=== PATIENT | female | born 1940 | race Caucasian/White ===

== ENCOUNTER 2021-12-13 14:28 | Inpatient (IN) | payer MEDICARE ==
[~2021-12-13] VITALS: Ht 170.2 cm; Wt 81.2 kg
[2021-12-13 16:43] LABS: HEMATOCRIT 40.9 % (31.2-41.9); MEAN CORPUSCULAR HEMOGLOBIN 28.4 uug (24.7-32.8); MEAN CORPUSCULAR VOLUME 87.7 fL (75.5-95.3); PLATELET COUNT (AUTO) 200 K/uL (179-408)
[2021-12-13 16:51] LABS: ALANINE AMINOTRANSFERASE 24 U/L (14-59); ALKALINE PHOSPHATASE 88 U/L (50-136); ASPARTATE AMINOTRANSFERASE 21 U/L (15-37); BILIRUBIN,DIRECT 0.1 mg/dL (0.0-0.2); BILIRUBIN,TOTAL 0.3 mg/dL (0.2-1.0); CARBON DIOXIDE 29 mmol/L (21-32); CHLORIDE 105 mmol/L (98-107); CREATININE 0.9 mg/dL (0.6-1.3); GLUCOSE 190 mg/dL (74-106); POTASSIUM 4.1 mmol/L (3.5-5.1); TOTAL PROTEIN, SERUM 7.4 g/dL (6.4-8.2); UREA NITROGEN, BLOOD 26 mg/dL (7-18)
[2021-12-13 16:53] LABS: ACETAMINOPHEN < 2.0 ug/mL (10-30)
[2021-12-13 17:08] LABS: ETHANOL < 3 MG/DL (0-0)
[2021-12-13 21:33] LABS: *AMPHETAMINE, URINE NEGATIVE (NEGATIVE); *CANNABINOID, URINE NEGATIVE (NEGATIVE); *COCCAINE, URINE NEGATIVE (NEGATIVE); *OPIATE, URINE NEGATIVE (NEGATIVE); *PHENCYCLIDINE SCREEN,URINE NEGATIVE (NEGATIVE)
[2021-12-14] MEDS ORDERED: LORAZEPAM 0.5 MG TABLET PO ONE (00:45)
[2021-12-14] MEDS ORDERED: OLANZAPINE 5 MG TABLET PO ONE (00:45)
[2021-12-14] MEDS ORDERED: OLANZAPINE 5 MG TABLET ONE (01:11)
[2021-12-14] MEDS ORDERED: LORAZEPAM 1 MG TABLET ONE (01:11)
[2021-12-14] MEDS ORDERED: MAGNESIUM HYDROXIDE 30 ML LIQUID UDC PO PRN (02:30)
[2021-12-14] MEDS ORDERED: MAG HYDROX/AL HYDROX/SIMETH 30 ML LIQUID UDC PO PRN (02:30)
[2021-12-14 03:23] VITALS: BP 166/81
[2021-12-14] MEDS: ACETAMINOPHEN 325 MG TABLET PO PRN (03:59)
[2021-12-14] MEDS: LORAZEPAM 1 MG TABLET PO PRN ×2 (04:00→17:06)
[2021-12-14 07:30] VITALS: BP 176/85
[2021-12-14] MEDS ORDERED: CHOL-35 PO (10:36)
[2021-12-14] MEDS ORDERED: IRBE300T18 PO (10:36)
[2021-12-14] MEDS ORDERED: AMLO-212 PO (10:36)
[2021-12-14] MEDS ORDERED: PANT20TA2 PO (10:36)
[2021-12-14] MEDS ORDERED: ACET-2154 PO (10:36)
[2021-12-14] MEDS ORDERED: QUET100T PO (10:36)
[2021-12-14 16:00] VITALS: BP 138/69
[2021-12-14 20:00] VITALS: BP 128/72
[2021-12-14] MEDS: TEMAZEPAM 7.5 MG CAPSULE PO PRN (21:52)
[2021-12-15 08:16] VITALS: BP 153/73
[2021-12-15] MEDS: LORAZEPAM 1 MG TABLET PO PRN ×2 (13:38→23:12)
[2021-12-15 16:21] VITALS: BP 119/71
[2021-12-15 19:58] VITALS: BP 142/74
[2021-12-15] MEDS: RIVASTIGMINE TARTRATE 1.5 MG CAPSULE PO SCH (22:05)
[2021-12-15] MEDS: TEMAZEPAM 7.5 MG CAPSULE PO PRN (22:05)
[2021-12-16] MEDS: ACETAMINOPHEN 325 MG TABLET PO PRN ×2 (03:49→17:42)
[2021-12-16] MEDS: LORAZEPAM 1 MG TABLET PO PRN ×4 (04:23→17:41)
[2021-12-16] MEDS: RIVASTIGMINE TARTRATE 1.5 MG CAPSULE PO SCH ×2 (08:50→21:05)
[2021-12-16] MEDS: risperiDONE 0.5 MG TABLET PO SCH ×2 (08:50→21:05)
[2021-12-16 09:45] VITALS: BP 145/57
[2021-12-16] MEDS: CHOLECALCIFEROL 1,000 UNIT TABLET PO SCH (14:15)
[2021-12-16] MEDS: LOSARTAN POTASSIUM 50 MG TABLET PO SCH (14:15)
[2021-12-16] MEDS: AMLODIPINE 5 MG TABLET PO SCH (14:15)
[2021-12-16 16:33] VITALS: BP 124/68
[2021-12-16 20:38] VITALS: BP 162/80
[2021-12-16] MEDS: TEMAZEPAM 7.5 MG CAPSULE PO PRN (21:05)
[2021-12-17] MEDS: PANTOPRAZOLE SODIUM 40 MG TABLET.DR PO SCH (06:21)
[2021-12-17 07:30] VITALS: BP 151/79
[2021-12-17] MEDS: LOSARTAN POTASSIUM 50 MG TABLET PO SCH (08:42)
[2021-12-17] MEDS: CHOLECALCIFEROL 1,000 UNIT TABLET PO SCH (08:43)
[2021-12-17] MEDS: RIVASTIGMINE TARTRATE 1.5 MG CAPSULE PO SCH ×2 (08:43→20:45)
[2021-12-17] MEDS: LORAZEPAM 1 MG TABLET PO PRN ×3 (08:43→20:07)
[2021-12-17] MEDS: AMLODIPINE 5 MG TABLET PO SCH (08:43)
[2021-12-17 14:42] VITALS: BP 124/54
[2021-12-17] MEDS ORDERED: HALOPERIDOL LACTATE 5 MG/1 ML VIAL IM ONE (16:30)
[2021-12-17 20:00] VITALS: BP 105/56
[2021-12-17] MEDS: TEMAZEPAM 7.5 MG CAPSULE PO PRN (22:34)
[2021-12-18] MEDS: LORAZEPAM 1 MG TABLET PO PRN ×3 (06:38→23:44)
[2021-12-18] MEDS: PANTOPRAZOLE SODIUM 40 MG TABLET.DR PO SCH (06:40)
[2021-12-18 07:30] VITALS: BP 149/83
[2021-12-18] MEDS ORDERED: risperiDONE 1 MG TABLET PO SCH (09:00)
[2021-12-18] MEDS: RIVASTIGMINE TARTRATE 1.5 MG CAPSULE PO SCH ×2 (09:08→20:34)
[2021-12-18] MEDS: LOSARTAN POTASSIUM 50 MG TABLET PO SCH (09:09)
[2021-12-18] MEDS: AMLODIPINE 5 MG TABLET PO SCH (09:10)
[2021-12-18] MEDS: CHOLECALCIFEROL 1,000 UNIT TABLET PO SCH (09:10)
[2021-12-18 16:00] VITALS: BP 149/68
[2021-12-18] MEDS: risperiDONE 2 MG TABLET PO SCH (20:34)
[2021-12-18 20:46] VITALS: BP 127/62
[2021-12-18] MEDS: TEMAZEPAM 7.5 MG CAPSULE PO PRN (21:40)
[2021-12-19] MEDS: LORAZEPAM 1 MG TABLET PO PRN (04:06)
[2021-12-19] MEDS: PANTOPRAZOLE SODIUM 40 MG TABLET.DR PO SCH (06:34)
[2021-12-19 07:30] VITALS: BP 147/80
[2021-12-19] MEDS: risperiDONE 2 MG TABLET PO SCH ×2 (09:15→20:58)
[2021-12-19] MEDS: AMLODIPINE 5 MG TABLET PO SCH (09:15)
[2021-12-19] MEDS: LOSARTAN POTASSIUM 50 MG TABLET PO SCH (09:15)
[2021-12-19] MEDS: CHOLECALCIFEROL 1,000 UNIT TABLET PO SCH (09:16)
[2021-12-19] MEDS: RIVASTIGMINE TARTRATE 1.5 MG CAPSULE PO SCH ×2 (09:17→20:58)
[2021-12-19 15:39] VITALS: BP 110/59
[2021-12-19 20:00] VITALS: BP 148/62
[2021-12-19] MEDS: TEMAZEPAM 7.5 MG CAPSULE PO PRN (22:50)
[2021-12-20] MEDS: ACETAMINOPHEN 325 MG TABLET PO PRN ×2 (00:22→13:55)
[2021-12-20] MEDS: LORAZEPAM 1 MG TABLET PO PRN ×3 (00:22→13:55)
[2021-12-20] MEDS: PANTOPRAZOLE SODIUM 40 MG TABLET.DR PO SCH (06:08)
[2021-12-20 08:12] VITALS: BP 130/72
[2021-12-20] MEDS: CHOLECALCIFEROL 1,000 UNIT TABLET PO SCH (08:52)
[2021-12-20] MEDS: LOSARTAN POTASSIUM 50 MG TABLET PO SCH (08:52)
[2021-12-20] MEDS: RIVASTIGMINE TARTRATE 1.5 MG CAPSULE PO SCH ×2 (08:53→20:36)
[2021-12-20] MEDS: risperiDONE 2 MG TABLET PO SCH ×2 (08:53→20:36)
[2021-12-20] MEDS: AMLODIPINE 5 MG TABLET PO SCH (08:53)
[2021-12-20 16:18] VITALS: BP 101/51
[2021-12-20 21:19] VITALS: BP 114/72
[2021-12-21] MEDS: PANTOPRAZOLE SODIUM 40 MG TABLET.DR PO SCH (06:31)
[2021-12-21 07:41] VITALS: BP 115/71
[2021-12-21] MEDS: risperiDONE 2 MG TABLET PO SCH ×2 (08:42→20:13)
[2021-12-21] MEDS: LOSARTAN POTASSIUM 50 MG TABLET PO SCH (08:43)
[2021-12-21] MEDS: AMLODIPINE 5 MG TABLET PO SCH (08:43)
[2021-12-21] MEDS: CHOLECALCIFEROL 1,000 UNIT TABLET PO SCH (08:43)
[2021-12-21] MEDS: RIVASTIGMINE TARTRATE 3 MG CAPSULE PO SCH ×2 (08:44→16:21)
[2021-12-21 15:56] VITALS: BP 103/51
[2021-12-21] MEDS: LORAZEPAM 1 MG TABLET PO PRN (20:14)
[2021-12-21 20:49] VITALS: BP 114/56
[2021-12-22] MEDS: ACETAMINOPHEN 325 MG TABLET PO PRN (00:50)
[2021-12-22] MEDS: TEMAZEPAM 7.5 MG CAPSULE PO PRN ×2 (00:51→20:21)
[2021-12-22] MEDS: PANTOPRAZOLE SODIUM 40 MG TABLET.DR PO SCH (06:03)
[2021-12-22 07:30] VITALS: BP 146/67
[2021-12-22] MEDS: risperiDONE 2 MG TABLET PO SCH ×2 (09:46→20:19)
[2021-12-22] MEDS: AMLODIPINE 5 MG TABLET PO SCH (09:46)
[2021-12-22] MEDS: LOSARTAN POTASSIUM 50 MG TABLET PO SCH (09:47)
[2021-12-22] MEDS: CHOLECALCIFEROL 1,000 UNIT TABLET PO SCH (09:47)
[2021-12-22] MEDS: LORAZEPAM 1 MG TABLET PO PRN ×2 (09:47→17:23)
[2021-12-22] MEDS: RIVASTIGMINE TARTRATE 3 MG CAPSULE PO SCH ×2 (09:47→17:23)
[2021-12-22 15:39] VITALS: BP 116/62
[2021-12-22 23:18] VITALS: BP 136/68
[2021-12-23] MEDS: PANTOPRAZOLE SODIUM 40 MG TABLET.DR PO SCH (06:08)
[2021-12-23 07:43] VITALS: BP 112/57
[2021-12-23] MEDS: AMLODIPINE 5 MG TABLET PO SCH (09:39)
[2021-12-23] MEDS: LOSARTAN POTASSIUM 50 MG TABLET PO SCH (09:39)
[2021-12-23] MEDS: RIVASTIGMINE TARTRATE 3 MG CAPSULE PO SCH ×2 (09:40→17:50)
[2021-12-23] MEDS: risperiDONE 2 MG TABLET PO SCH ×2 (09:40→20:28)
[2021-12-23] MEDS: CHOLECALCIFEROL 1,000 UNIT TABLET PO SCH (09:40)
[2021-12-23] MEDS: LORAZEPAM 1 MG TABLET PO PRN ×2 (10:37→15:44)
[2021-12-23 16:17] VITALS: BP 109/43
[2021-12-23 19:59] VITALS: BP 131/62
[2021-12-24] MEDS: PANTOPRAZOLE SODIUM 40 MG TABLET.DR PO SCH (06:27)
[2021-12-24 07:30] VITALS: BP 141/63
[2021-12-24] MEDS: CHOLECALCIFEROL 1,000 UNIT TABLET PO SCH (09:00)
[2021-12-24] MEDS: AMLODIPINE 5 MG TABLET PO SCH (09:00)
[2021-12-24] MEDS: risperiDONE 2 MG TABLET PO SCH ×2 (09:00→20:09)
[2021-12-24] MEDS: RIVASTIGMINE TARTRATE 3 MG CAPSULE PO SCH ×2 (09:00→17:45)
[2021-12-24] MEDS: LOSARTAN POTASSIUM 50 MG TABLET PO SCH (09:03)
[2021-12-24 16:04] VITALS: BP 104/54
[2021-12-24] MEDS: ENSURE ENLIVE (VAN) 240 ML LIQUID PO SCH (17:45)
[2021-12-24] MEDS: LORAZEPAM 1 MG TABLET PO PRN (17:45)
[2021-12-24 20:23] VITALS: BP 100/54
[2021-12-24] MEDS: TEMAZEPAM 7.5 MG CAPSULE PO PRN (21:36)
[2021-12-25] MEDS: PANTOPRAZOLE SODIUM 40 MG TABLET.DR PO SCH (06:32)
[2021-12-25 07:30] VITALS: BP 117/60
[2021-12-25 08:00] LABS: CARBON DIOXIDE 32 mmol/L (21-32); CHLORIDE 102 mmol/L (98-107); GLUCOSE 114 mg/dL (74-106); UREA NITROGEN, BLOOD 29 mg/dL (7-18)
[2021-12-25] MEDS: AMLODIPINE 5 MG TABLET PO SCH (09:03)
[2021-12-25] MEDS: risperiDONE 2 MG TABLET PO SCH ×2 (09:03→21:33)
[2021-12-25] MEDS: RIVASTIGMINE TARTRATE 3 MG CAPSULE PO SCH ×2 (09:03→17:30)
[2021-12-25] MEDS: CHOLECALCIFEROL 1,000 UNIT TABLET PO SCH (09:03)
[2021-12-25] MEDS: LOSARTAN POTASSIUM 50 MG TABLET PO SCH (09:05)
[2021-12-25] MEDS: ENSURE ENLIVE (VAN) 240 ML LIQUID PO SCH ×2 (09:07→17:31)
[2021-12-25 16:00] VITALS: BP 103/44
[2021-12-25 20:00] VITALS: BP 95/37
[2021-12-25] MEDS: TEMAZEPAM 7.5 MG CAPSULE PO PRN (20:41)
[2021-12-26] MEDS: PANTOPRAZOLE SODIUM 40 MG TABLET.DR PO SCH (06:02)
[2021-12-26 07:30] VITALS: BP 118/47
[2021-12-26] MEDS: RIVASTIGMINE TARTRATE 3 MG CAPSULE PO SCH ×2 (08:39→16:56)
[2021-12-26] MEDS: AMLODIPINE 5 MG TABLET PO SCH (08:39)
[2021-12-26] MEDS: risperiDONE 2 MG TABLET PO SCH ×2 (08:39→20:21)
[2021-12-26] MEDS: CHOLECALCIFEROL 1,000 UNIT TABLET PO SCH (08:39)
[2021-12-26] MEDS: ENSURE ENLIVE (VAN) 240 ML LIQUID PO SCH ×2 (08:40→17:19)
[2021-12-26] MEDS: LOSARTAN POTASSIUM 50 MG TABLET PO SCH (08:40)
[2021-12-26] MEDS: ACETAMINOPHEN 325 MG TABLET PO PRN ×2 (11:36→20:21)
[2021-12-26 15:13] VITALS: BP 118/59
[2021-12-26 20:00] VITALS: BP 128/62
[2021-12-26] MEDS: TEMAZEPAM 7.5 MG CAPSULE PO PRN (23:27)
[2021-12-27] MEDS: PANTOPRAZOLE SODIUM 40 MG TABLET.DR PO SCH (07:07)
[2021-12-27 07:30] VITALS: BP 118/52
[2021-12-27] MEDS: LOSARTAN POTASSIUM 50 MG TABLET PO SCH (09:47)
[2021-12-27] MEDS: RIVASTIGMINE TARTRATE 3 MG CAPSULE PO SCH ×2 (09:47→17:41)
[2021-12-27] MEDS: AMLODIPINE 5 MG TABLET PO SCH (09:48)
[2021-12-27] MEDS: risperiDONE 2 MG TABLET PO SCH ×2 (09:48→20:46)
[2021-12-27] MEDS: ENSURE ENLIVE (VAN) 240 ML LIQUID PO SCH (09:50)
[2021-12-27] MEDS: CHOLECALCIFEROL 1,000 UNIT TABLET PO SCH (09:51)
[2021-12-27] MEDS: GLUCERNA SHAKE 237 ML CAN PO SCH (13:06)
[2021-12-27] MEDS: ACETAMINOPHEN 325 MG TABLET PO PRN (13:07)
[2021-12-27] MEDS: LORAZEPAM 1 MG TABLET PO PRN ×2 (15:39→20:45)
[2021-12-27 16:30] VITALS: BP 125/57
[2021-12-27] MEDS: TEMAZEPAM 7.5 MG CAPSULE PO PRN (20:45)
[2021-12-28] MEDS: PANTOPRAZOLE SODIUM 40 MG TABLET.DR PO SCH (06:32)
[2021-12-28] MEDS: CHOLECALCIFEROL 1,000 UNIT TABLET PO SCH (08:22)
[2021-12-28] MEDS: risperiDONE 2 MG TABLET PO SCH ×2 (08:23→20:21)
[2021-12-28] MEDS: LOSARTAN POTASSIUM 50 MG TABLET PO SCH (08:24)
[2021-12-28] MEDS: AMLODIPINE 5 MG TABLET PO SCH (08:24)
[2021-12-28] MEDS: RIVASTIGMINE TARTRATE 3 MG CAPSULE PO SCH ×2 (08:25→17:00)
[2021-12-28] MEDS: GLUCERNA SHAKE 237 ML CAN PO SCH (08:28)
[2021-12-28 09:32] VITALS: BP 127/70
[2021-12-28 16:03] VITALS: BP 125/54
[2021-12-28] MEDS: LORAZEPAM 1 MG TABLET PO PRN (20:21)
[2021-12-28] MEDS: TEMAZEPAM 7.5 MG CAPSULE PO PRN (21:03)
[2021-12-28 21:07] VITALS: BP 107/57
[2021-12-29] MEDS: PANTOPRAZOLE SODIUM 40 MG TABLET.DR PO SCH (06:23)
[2021-12-29 07:41] VITALS: BP 128/65
[2021-12-29] MEDS: RIVASTIGMINE TARTRATE 3 MG CAPSULE PO SCH ×2 (09:39→16:54)
[2021-12-29] MEDS: LOSARTAN POTASSIUM 50 MG TABLET PO SCH (09:40)
[2021-12-29] MEDS: AMLODIPINE 5 MG TABLET PO SCH (09:41)
[2021-12-29] MEDS: CHOLECALCIFEROL 1,000 UNIT TABLET PO SCH (09:41)
[2021-12-29] MEDS: risperiDONE 2 MG TABLET PO SCH ×2 (09:41→20:21)
[2021-12-29] MEDS: GLUCERNA SHAKE 237 ML CAN PO SCH (09:42)
[2021-12-29] MEDS: LORAZEPAM 1 MG TABLET PO PRN ×2 (10:55→19:46)
[2021-12-29 16:03] VITALS: BP 116/65
[2021-12-29 19:45] VITALS: BP 117/53
[2021-12-29] MEDS: ACETAMINOPHEN 325 MG TABLET PO PRN (20:55)
[2021-12-29] MEDS: TEMAZEPAM 7.5 MG CAPSULE PO PRN (20:58)
[2021-12-30] MEDS: PANTOPRAZOLE SODIUM 40 MG TABLET.DR PO SCH (06:07)
[2021-12-30 08:02] VITALS: BP 136/63
[2021-12-30] MEDS: ACETAMINOPHEN 325 MG TABLET PO PRN ×2 (08:49→23:00)
[2021-12-30] MEDS: CHOLECALCIFEROL 1,000 UNIT TABLET PO SCH (08:49)
[2021-12-30] MEDS: RIVASTIGMINE TARTRATE 3 MG CAPSULE PO SCH ×2 (08:49→16:24)
[2021-12-30] MEDS: AMLODIPINE 5 MG TABLET PO SCH (08:49)
[2021-12-30] MEDS: risperiDONE 2 MG TABLET PO SCH ×2 (08:49→20:10)
[2021-12-30] MEDS: LOSARTAN POTASSIUM 50 MG TABLET PO SCH (08:50)
[2021-12-30] MEDS: GLUCERNA SHAKE 237 ML CAN PO SCH (08:50)
[2021-12-30] MEDS: DIVALPROEX 125 MG TABLET.DR PO SCH ×2 (10:19→20:10)
[2021-12-30 16:02] VITALS: BP 117/59
[2021-12-30] MEDS: LORAZEPAM 1 MG TABLET PO PRN ×2 (16:39→23:00)
[2021-12-30 19:48] VITALS: BP 136/72
[2021-12-30] MEDS: TEMAZEPAM 7.5 MG CAPSULE PO PRN (21:59)
[2021-12-31] MEDS: ACETAMINOPHEN 325 MG TABLET PO PRN (06:54)
[2021-12-31] MEDS: PANTOPRAZOLE SODIUM 40 MG TABLET.DR PO SCH (06:54)
[2021-12-31 07:47] VITALS: BP 145/74
[2021-12-31] MEDS: CHOLECALCIFEROL 1,000 UNIT TABLET PO SCH (08:29)
[2021-12-31] MEDS: DIVALPROEX 125 MG TABLET.DR PO SCH ×2 (08:29→20:03)
[2021-12-31] MEDS: RIVASTIGMINE TARTRATE 3 MG CAPSULE PO SCH ×2 (08:29→16:40)
[2021-12-31] MEDS: risperiDONE 2 MG TABLET PO SCH ×2 (08:29→20:03)
[2021-12-31] MEDS: AMLODIPINE 5 MG TABLET PO SCH (08:30)
[2021-12-31] MEDS: GLUCERNA SHAKE 237 ML CAN PO SCH (08:30)
[2021-12-31] MEDS: LOSARTAN POTASSIUM 50 MG TABLET PO SCH (08:30)
[2021-12-31 16:15] VITALS: BP 98/62
[2021-12-31 20:04] VITALS: BP 115/58
[2021-12-31] MEDS: TEMAZEPAM 7.5 MG CAPSULE PO PRN (21:33)
[2022-01-01] MEDS: LORAZEPAM 1 MG TABLET PO PRN ×2 (03:00→19:50)
[2022-01-01] MEDS: ACETAMINOPHEN 325 MG TABLET PO PRN (04:00)
[2022-01-01] MEDS: PANTOPRAZOLE SODIUM 40 MG TABLET.DR PO SCH (06:17)
[2022-01-01 07:30] VITALS: BP 119/59
[2022-01-01] MEDS: risperiDONE 2 MG TABLET PO SCH ×2 (08:36→20:06)
[2022-01-01] MEDS: RIVASTIGMINE TARTRATE 3 MG CAPSULE PO SCH ×2 (08:36→16:56)
[2022-01-01] MEDS: DIVALPROEX 125 MG TABLET.DR PO SCH (08:37)
[2022-01-01] MEDS: CHOLECALCIFEROL 1,000 UNIT TABLET PO SCH (08:37)
[2022-01-01] MEDS: LOSARTAN POTASSIUM 50 MG TABLET PO SCH (08:37)
[2022-01-01] MEDS: AMLODIPINE 5 MG TABLET PO SCH (08:38)
[2022-01-01] MEDS: GLUCERNA SHAKE 237 ML CAN PO SCH (08:39)
[2022-01-01 16:00] VITALS: BP 130/66
[2022-01-01 20:08] VITALS: BP 101/56
[2022-01-01] MEDS: DIVALPROEX 250 MG TABLET.DR PO SCH (20:14)
[2022-01-01] MEDS ORDERED: DIVALPROEX 125 MG TABLET.DR PO SCH (21:00)
[2022-01-01] MEDS: TEMAZEPAM 7.5 MG CAPSULE PO PRN (21:49)
[2022-01-02] MEDS: LORAZEPAM 1 MG TABLET PO PRN ×2 (01:36→20:34)
[2022-01-02] MEDS: PANTOPRAZOLE SODIUM 40 MG TABLET.DR PO SCH (06:17)
[2022-01-02 08:20] VITALS: BP 117/59
[2022-01-02] MEDS: GLUCERNA SHAKE 237 ML CAN PO SCH (09:00)
[2022-01-02] MEDS: RIVASTIGMINE TARTRATE 3 MG CAPSULE PO SCH ×2 (09:30→17:31)
[2022-01-02] MEDS: risperiDONE 2 MG TABLET PO SCH ×2 (09:31→20:34)
[2022-01-02] MEDS: DIVALPROEX 250 MG TABLET.DR PO SCH ×2 (09:31→20:34)
[2022-01-02] MEDS: CHOLECALCIFEROL 1,000 UNIT TABLET PO SCH (09:31)
[2022-01-02] MEDS: AMLODIPINE 5 MG TABLET PO SCH (10:13)
[2022-01-02] MEDS: LOSARTAN POTASSIUM 50 MG TABLET PO SCH (10:13)
[2022-01-02] MEDS: ACETAMINOPHEN 325 MG TABLET PO PRN (10:41)
[2022-01-02] MEDS: CARISOPRODOL 350 MG TABLET PO PRN ×2 (11:32→15:54)
[2022-01-02 16:00] VITALS: BP 110/55
[2022-01-02 20:00] VITALS: BP 107/56
[2022-01-02] MEDS: TEMAZEPAM 7.5 MG CAPSULE PO PRN (21:11)
[2022-01-03] MEDS: CARISOPRODOL 350 MG TABLET PO PRN ×2 (04:40→14:07)
[2022-01-03] MEDS: LORAZEPAM 1 MG TABLET PO PRN (04:40)
[2022-01-03] MEDS: PANTOPRAZOLE SODIUM 40 MG TABLET.DR PO SCH (06:39)
[2022-01-03 07:59] VITALS: BP 150/69
[2022-01-03] MEDS: DIVALPROEX 250 MG TABLET.DR PO SCH (09:50)
[2022-01-03] MEDS: AMLODIPINE 5 MG TABLET PO SCH (09:50)
[2022-01-03] MEDS: risperiDONE 2 MG TABLET PO SCH (09:50)
[2022-01-03] MEDS: RIVASTIGMINE TARTRATE 3 MG CAPSULE PO SCH (09:52)
[2022-01-03 09:53] VITALS: BP 152/69
[2022-01-03] MEDS: LOSARTAN POTASSIUM 50 MG TABLET PO SCH (09:53)
[2022-01-03] MEDS: GLUCERNA SHAKE 237 ML CAN PO SCH (09:53)
[2022-01-03] MEDS: CHOLECALCIFEROL 1,000 UNIT TABLET PO SCH (09:54)
== END 2022-01-03 15:15 | disposition home or self-care (01) | DRG 885 ==
LOC: ER 14:28 → GPS 12-14 02:13
PROVIDERS: ADMIT Psychiatry & Neurology Psychiatry; ATTEND Nurse Practitioner Acute Care
DX: F31.9 Bipolar disorder, unspecified (principal); N17.9 Acute kidney failure, unspecified; I10 Essential (primary) hypertension; F41.9 Anxiety disorder, unspecified; G30.9 Alzheimer's disease, unspecified; F02.80 Dementia in other diseases classified elsewhere, unspecified severity, without behavioral disturbance, psychotic disturbance, mood disturbance, and anxiety; G89.29 Other chronic pain; Z79.899 Other long term (current) drug therapy; Z91.419 Personal history of unspecified adult abuse; M25.562 Pain in left knee
CPT/HCPCS: 36415; 73630; 80164; 85025; 93005; 97161; A4663; G0480; J1630; J3490